=== PATIENT | male | born 1970 | race Caucasian/White ===

== ENCOUNTER 2017-03-02 14:13 | Emergency (ER) | payer SELFPAY ==
[2017-03-02] MEDS ORDERED: Tetan/Diph/Pertus SYR(Tdap)* 0.5 ML SYR(BOOSTRIX) use SYR IM ONE (15:44)
[2017-03-02 16:03] VITALS: BP 133/68
--- NOTE | 2017-03-07 12:20 | ED ---
Laceration/Wound HPI - HPI Summary HPI Summary: Patient presents to the ED with laceration to the left fourth digit. laceration is 2.5cm, superficial with 0.0 width. he notes to minimal bleeding, which abruptly stopped after 2 minutes. He wanted to get the area checked out. He denies blood thinners, otherwise healthy, no allergies. denies any other injuries, pain or concern today. Pulses +2 bilaterally and cap refill < 2 sec. bleeding controlled. - History of Current Complaint Stated Complaint: LT FINGER LAC Time Seen by Provider: 03/02/17 15:09 Hx Obtained From: Patient Onset/Duration: Sudden Onset Aggravating: Nothing Alleviating: Compression Timing: Constant Onset Severity: Mild Current Severity: None Pain Intensity: 0 Pain Scale Used: 0-10 Numeric Associated Signs & Symptoms: Negative - Allergy/Home Medications Allergies/Adverse Reactions: Allergies Allergy/AdvReac Type Severity Reaction Status Date / Time No Known Allergies Allergy Verified 03/02/17 15:59 PMH/Surg Hx/FS Hx/Imm Hx Previously Healthy: Yes - Immunization History Hx Pertussis Vaccination: No Immunizations Up to Date: Unable to Obtain/Confirm Infectious Disease History: No Infectious Disease History: Denies: Traveled Outside the [place] in Last 30 Days - Social History Occupation: Employed Full-time Lives: With Family Alcohol Use: Occasionally Hx Substance Use: No Substance Use Type: Reports: None Hx Tobacco Use: No Smoking Status (MU): Never Smoked Tobacco Review of Systems Constitutional: Negative Cardiovascular: Negative Respiratory: Negative Gastrointestinal: Negative Positive: no symptoms reported, see HPI Musculoskeletal: Negative Positive: Other - 2.5 laceration to the dorsum of the fourth left digit Neurological: Negative Psychological: Normal All Other Systems Reviewed And Are Negative: Yes Physical Exam Triage Information Reviewed: Yes Vital Signs On Initial Exam: Initial Vitals Temp Pulse Resp BP Pulse Ox 98.1 F 85 20 120/71 100 03/02/17 14:32 03/02/17 14:32 03/02/17 14:32 03/02/17 14:32 03/02/17 14:32 Vital Signs Reviewed: Yes Appearance: Positive: Well-Appearing, Well-Nourished Skin: Positive: Warm, Skin Color Reflects Adequate Perfusion, Other - 2.5 laceration to the dorsum of the fourth left digit Head/Face: Positive: Normal Head/Face Inspection Eyes: Positive: EOMI, SYLVIA, Conjunctiva Clear Neck: Positive: Supple, No Lymphadenopathy Respiratory/Lung Sounds: Positive: Clear to Auscultation, Breath Sounds Present Cardiovascular: Positive: Normal, RRR, Pulses are Symmetrical in both Upper and Lower Extremities Abdomen Description: Positive: Nontender, No Organomegaly Musculoskeletal: Positive: Normal, Strength/ROM Intact Neurological: Positive: Sensory/Motor Intact, Alert, Oriented to Person Place, Time, Speech Normal Psychiatric: Positive: Normal AVPU Assessment: Alert - Micky Coma Scale Best Eye Response: 4 - Spontaneous Best Motor Response: 6 - Obeys Commands Best Verbal Response: 5 - Oriented Diagnostics - Vital Signs Vital Signs Temp Pulse Resp BP Pulse Ox 03/02/17 16:02 97.8 F 50 17 133/68 03/02/17 14:32 98.1 F 85 20 120/71 100 - Laboratory Lab Statement: Any lab studies that have been ordered have been reviewed, and results considered in the medical decision making process. Laceration Repair Course/Dx - Course Course Of Treatment: 2.5 laceration to the dorsum of the fourth left digit. bleeding controlled. laceration in no need of repair. Pulses +2 bilaterally and cap refill < 2 sec. adhesive and 3 steri strips applied with bandaid. patient tolerated well. patient is ok for discharge - Differential Dx Differental Diagnoses: Laceration, Puncture Wound, Tendon Laceration - Clinical Impression Provider Diagnoses: Finger laceration Discharge - Discharge Plan Condition: Stable Disposition: HOME Patient Education Materials: Skin Adhesive Care (ED), Steristrips (ED) Referrals: Osvaldo Dorsey MD [Primary Care Provider] - Additional Instructions: If you develop redness, streaks of red around the wound, swelling, abnormal drainage or you develop a fever - you need to come back to the ED right away. Steri strips will fall off in a few days, or you may taken them off yourself.
== END 2017-03-02 16:08 | disposition home or self-care (01) ==
LOC: ED 14:13
DX: S61.215A Laceration without foreign body of left ring finger without damage to nail, initial encounter (principal); W45.8XXA Other foreign body or object entering through skin, initial encounter; Y93.9 Activity, unspecified; Y92.9 Unspecified place or not applicable; Z23 Encounter for immunization
CPT/HCPCS: 90471; 90715; 99281